=== PATIENT | male | born 1985 | race Caucasian/White ===

== ENCOUNTER 2017-03-17 15:59 | Emergency (ER) | payer BC ==
[2017-03-17 16:10] VITALS: BP 154/79
--- NOTE | 2017-03-17 16:57 | UC ---
Skin Complaint HPI - HPI Summary HPI Summary: For 2 weeks, has been getting raised, itchy, round red bumps on L upper arm near elbow at triceps area; spots are coming in ones and twos, very itchy, then resolve in a few days. Has had at least 6 or 7 of them. Lives in a communal house, no one else has spots. Also shares a bed with someone who is symptom- free. No new fevers, weight loss, or other problems. Has tried benadryl without relief. - History of Current Complaint Hx Obtained From: Patient Onset/Duration: Gradual Onset, Lasting Weeks Timing: Constant Onset Severity: Mild Current Severity: Mild Location: Discrete Character: Pruritus, Redness, Raised Aggravating Factor(s): Nothing Alleviating Factor(s): Nothing Associated Signs & Symptoms: Positive: Rash <Aisha Jade - Last Filed: 03/17/17 16:53> <Priscila Estrada - Last Filed: 03/17/17 19:30> - History of Current Complaint Chief Complaint: UCRash Time Seen by Provider: 03/17/17 16:23 Stated Complaint: RASH - Allergy/Home Medications Allergies/Adverse Reactions: Allergies Allergy/AdvReac Type Severity Reaction Status Date / Time Shellfish Allergy Allergy Hives Verified 03/17/17 16:10 Home Medications: Home Medications diPHENhydraMINE PO* [Benadryl PO 25 MG TAB*] 1 tab PO ONCE 03/17/17 [History Confirmed 03/17/17] Review of Systems Constitutional: Negative Skin: Rash Eyes: Negative ENT: Negative Respiratory: Negative Cardiovascular: Negative Gastrointestinal: Negative Genitourinary: Negative Motor: Negative Neurovascular: Negative Musculoskeletal: Negative Neurological: Negative Psychological: Negative Is Patient Immunocompromised?: No All Other Systems Reviewed And Are Negative: Yes <Aisha Jade - Last Filed: 03/17/17 16:53> PMH/Surg Hx/FS Hx/Imm Hx Previously Healthy: Yes - Surgical History Surgical History: Yes Surgery Procedure, Year, and Place: CHOLECYSTECTOMY - Family History Known Family History: Positive: Hypertension - Social History Occupation: Employed Full-time Alcohol Use: Occasionally Substance Use Type: None Smoking Status (MU): Never Smoked Tobacco - Immunization History Most Recent Influenza Vaccination: never Most Recent Tetanus Shot: up to date <Aisha Jade - Last Filed: 03/17/17 16:53> Physical Exam Triage Information Reviewed: Yes Appearance: Well-Appearing, No Pain Distress, Well-Nourished Vital Signs: Initial Vital Signs Temp 97.6 F 03/17/17 16:08 Pulse 75 03/17/17 16:08 Resp 18 03/17/17 16:08 BP 154/79 03/17/17 16:08 Pulse Ox 100 03/17/17 16:08 Vital Signs Reviewed: Yes Eye Exam: Normal Eyes: Positive: Conjunctiva Clear ENT Exam: Normal ENT: Positive: Normal ENT inspection, Hearing grossly normal, Pharynx normal, TMs normal Dental Exam: Normal Neck exam: Normal Respiratory Exam: Normal Respiratory: Positive: Chest non-tender, Lungs clear, Normal breath sounds, No respiratory distress, No accessory muscle use Cardiovascular Exam: Normal Cardiovascular: Positive: RRR, No Murmur Musculoskeletal Exam: Normal Neurological Exam: Normal Neurological: Positive: Alert Psychological Exam: Normal Skin Exam: Other - single 1cm raised papule L triceps area, red & inflamed. No streaking, blisters, or drainage. <Aisha Jade - Last Filed: 03/17/17 16:53> Vital Signs: Initial Vital Signs Temp 97.6 F 03/17/17 16:08 Pulse 75 03/17/17 16:08 Resp 18 03/17/17 16:08 BP 154/79 03/17/17 16:08 Pulse Ox 100 03/17/17 16:08 <Priscila Estrada - Last Filed: 03/17/17 19:30> Course/Dx - Diagnoses Provider Diagnoses: dermatitis <Aisha Jade - Last Filed: 03/17/17 16:53> Discharge <Aisha Jade - Last Filed: 03/17/17 16:53> <Priscila Estrada - Last Filed: 03/17/17 19:30> - Discharge Plan Condition: Stable Disposition: HOME Prescriptions: Clobetasol Propionate 1 applic TOPICAL BID #30 gm Patient Education Materials: Dermatitis (ED) Referrals: Glenn Kevin MD [Primary Care Provider] - Additional Instructions: As we discussed, I do not have a strong impression of what is causing your itchy spots. They do NOT look like infection, infestation, or anything worrisome. However, if you continue to get spots in that area (or elsewhere), please go see your primary care provider. Attestation Statement User Type: Provider - I was available for consult. This patient was seen by the ANTONY. The patient was not presented to, seen by, or examined by me. -[place] <Priscila Estrada - Last Filed: 03/17/17 19:30>
== END 2017-03-17 17:01 | disposition home or self-care (01) ==
LOC: UCEAST 15:59
DX: L30.9 Dermatitis, unspecified (principal)
CPT/HCPCS: 99212; G0463

== ENCOUNTER 2017-03-19 11:35 | Emergency (ER) | payer BC ==
[2017-03-19 11:55] VITALS: BP 142/73
--- NOTE | 2017-03-19 13:57 | UC ---
Back Pain HPI - HPI Summary HPI Summary: Patient presents to the with CC of left neck pain radiating to the left scapula since wakening this morning. Denies numbness, tingling, color or temperature changes to the hand and arm. He has never had this before. States upon wakening he felt he had pinched a nerve and has been unable have full ROM without pain. He has tried IBuprofen x 1 without relief of symptoms. He has not tried head. Denies known trauma or other injury to the area. - History of Current Complaint Hx Obtained From: Patient Onset/Duration: Sudden Onset Timing: Constant Severity Initially: Moderate Severity Currently: Moderate Pain Intensity: 0 Pain Scale Used: 0-10 Numeric Back Pain: Is Discrete @ - left scapula Aggravating Factor(s): Movement Alleviating Factor(s): Rest, Position Associated Signs And Symptoms: Positive: Negative. Negative: Fever, Weakness, Numbness - Risk Factors AAA Risk Factors: Negative TAD Risk Factors: Negative Cauda Equina Risk Factors: Negative Epidural Abscess Risk Factors: Negative <Coty Garcia - Last Filed: 03/19/17 13:53> - HPI Summary HPI Summary: CLARIFICATION TO HPI - PT HAS NOT TRIED HEAT <Jennifer Mirza - Last Filed: 03/19/17 15:16> - History of Current Complaint Chief Complaint: UCBackPain Stated Complaint: BACK PAIN Time Seen by Provider: 03/19/17 12:33 - Allergies/Home Medications Allergies/Adverse Reactions: Allergies Allergy/AdvReac Type Severity Reaction Status Date / Time Shellfish Allergy Allergy Hives Verified 03/17/17 16:10 PMH/Surg Hx/FS Hx/Imm Hx Previously Healthy: Yes - Surgical History Surgical History: Yes Surgery Procedure, Year, and Place: CHOLECYSTECTOMY - Family History Known Family History: Positive: Hypertension - Social History Occupation: Employed Part-time Lives: With Family Alcohol Use: Occasionally Substance Use Type: None Smoking Status (MU): Never Smoked Tobacco - Immunization History Most Recent Influenza Vaccination: never Most Recent Tetanus Shot: up to date <Coty Garcia - Last Filed: 03/19/17 13:53> Review of Systems Constitutional: Negative Respiratory: Negative Cardiovascular: Negative Gastrointestinal: Negative Genitourinary: Negative Motor: Decreased ROM Neurovascular: Negative Musculoskeletal: Arthralgia - left scapular pain Neurological: Negative Is Patient Immunocompromised?: No All Other Systems Reviewed And Are Negative: Yes <Coty Garcia - Last Filed: 03/19/17 13:53> Physical Exam Triage Information Reviewed: Yes Appearance: Well-Appearing, Well-Nourished Vital Signs: Initial Vital Signs Temp 97.5 F 03/19/17 11:51 Pulse 63 03/19/17 11:51 Resp 16 03/19/17 11:51 BP 142/73 03/19/17 11:51 Pulse Ox 100 03/19/17 11:51 Vital Signs Reviewed: Yes Eye Exam: Normal Eyes: Positive: Conjunctiva Clear Neck exam: Normal Neck: Positive: Supple, No Lymphadenopathy Respiratory Exam: Normal Respiratory: Positive: Chest non-tender Cardiovascular Exam: Normal Cardiovascular: Positive: RRR Musculoskeletal: Positive: Strength Intact, ROM Intact - but with pain Neurological Exam: Normal Neurological: Positive: Alert Psychological Exam: Normal Psychological: Positive: Normal Response To Family Skin Exam: Normal <Coty Garcia - Last Filed: 03/19/17 13:53> Vital Signs: Initial Vital Signs Temp 97.5 F 03/19/17 11:51 Pulse 63 03/19/17 11:51 Resp 16 03/19/17 11:51 BP 142/73 03/19/17 11:51 Pulse Ox 100 03/19/17 11:51 <Jennifer Mirza - Last Filed: 03/19/17 15:16> Back Pain Course/Dx - Course Course Of Treatment: Patient is evaluated for acute onset neck and scapular pain since this morning. He has full ROM. Upon flexion of the neck, he notes to pain under the left scapula as a "pulling" sensation." He has full ROM and denies any weakness or ROM limitations. Encouraged ibuprofen and moist heat to the area and he is given flexeril for muscle relief. He is Ok with this plan and understands any return precautions given to him. - Differential Dx/Diagnosis Differential Diagnosis/HQI/PQRI: Strain, Sprain Provider Diagnoses: Cervical radiculopathy <Coty Garcia - Last Filed: 03/19/17 13:53> Discharge <Coty Garcia - Last Filed: 03/19/17 13:53> <Jennifer Mirza - Last Filed: 03/19/17 15:16> - Discharge Plan Condition: Stable Disposition: HOME Prescriptions: Cyclobenzaprine TAB* [Flexeril TAB*] 10 mg PO TID #15 tab MDD 3 Patient Education Materials: Cervical Radiculopathy (ED), Acute Neck Pain (ED) Referrals: Glenn Kevin MD [Primary Care Provider] - Additional Instructions: Flexeril: This medication is a muscle relaxant and can help relieve muscle spasms, muscle strain, or pain sensations. Flexeril can cause side effects that may impair your thinking or reactions. Be careful if you drive or do anything that requires you to be awake and alert. Avoid drinking alcohol, which can increase some of the side effects of Flexeril. Ibuprofen 600mg three times daily with meals for discomfort. Return to ED if symptoms worsen or fail to improve, notice worsening swelling, warmth or redness around the joint, develop fever, or pain is uncontrolled with OTC medications. Moist heat to the area for comfort. Warm showers or baths may improve symptoms. It is important to remain mobile as tolerated to prevent stiffening of the joints and delay healing. Follow up with your PCP. If symptoms remain for > 6 weeks, please seek special medical attention from an orthopedic physician.
== END 2017-03-19 12:57 | disposition home or self-care (01) ==
LOC: UCEAST 11:35
DX: M54.12 Radiculopathy, cervical region (principal); Z91.013 Allergy to seafood
CPT/HCPCS: 99212; G0463

== ENCOUNTER 2017-11-30 07:16 | Emergency (ER) | payer BC ==
--- OUTSIDE RECORDS SUMMARY | 2017-11-30 07:22 | XMS REPORT ---
:1985 External Reference #:[id number] Author Organization [employer] Address [address] [place] [address] [place] [address] Phone [phone] Care Team Providers Name Role Phone Glenn Kevin MD Primary Care Physician Unavailable Payers Type Date Identification Numbers Payment Provider Subscriber Commercial Policy Number: [id number] [employer] Honorio Young PayID: [id number] [address] [address] [place] [address] Problems Date Description Provider Status Onset: 11/11/2017 Lesion of ulnar nerve Milton Quiroz MD Active Onset: 11/11/2017 Sprain of wrist and/or hand Milton Quiroz MD Active Social History Type Date Description Comments Smoking Patient has never smoked Recreational Drug Use Regularly uses Marijuana Allergies, Adverse Reactions, Alerts Date Description Reaction Status Severity Comments 07/01/2017 Shellfish-derived Products active hives Medications Medication Date Status Form Strength Qnty SIG Indications Ordering Provider Meclizine HCL Active Tablets 25mg as needed Unknown [address] 20mg 1 by Unknown 000 mouth every day Truvada 0 Active Tablets 200-300mg 1 by Unknown 000 mouth every day Vital Signs Date Vital Result Comment 11/11/2017 Height 74 inches 6'2" Weight 255.25 lb Heart Rate 74 /min BP Systolic 126 mmHg BP Diastolic 80 mmHg Respiratory Rate 16 /min Body Temperature 97.6 F Pain Level 6 BMI (Body Mass Index) 32.8 kg/m2 09/23/2017 Heart Rate 78 /min BP Systolic Sitting 132 mmHg BP Diastolic Sitting 84 mmHg Respiratory Rate 16 /min Body Temperature 97.8 F 07/01/2017 Height 73 inches 6'1" Weight 252.00 lb Heart Rate 76 /min BP Systolic 140 mmHg BP Diastolic 90 mmHg Respiratory Rate 18 /min Body Temperature 98.1 F BMI (Body Mass Index) 33.2 kg/m2 Results Description No Information Procedures Date CPT Code Description Status 09/23/2017 56225 Anoscopy Completed 07/01/2017 60283 Anoscopy Completed Encounters Type Date Location Provider CPT E/M Dx Office Visit 09/23/2017 [facility], 03164 L29.0 10:30a Kong RANDALL Office Visit 07/01/2017 [facility], [address]604 L29.0 10:00a Kong RANDALL Plan of Care 11/11/2017 - Milton Quiroz, [id number] Other specified sprain of right wrist, initial encounterNew Therapy:Physical TherapyFollow up:Follow up: after MRI and EMGG56.21 Lesion of ulnar nerve, right upper limbNew Therapy:Physical Therapy
[2017-11-30 07:29] VITALS: BP 161/85
--- NOTE | 2017-11-30 08:35 | UC ---
Lower Extremity/Ankle HPI - HPI Summary HPI Summary: States yesterday night he jumped off a stage that was about 4 feet above the ground and landed on both feet. He was wearing 5 inch heels at the time of the jump. He continued to be able to walk and dance and it was until later that evening he noticed some pain on right mid foot and around left pinky toe area. This morning he states the pain was much more severe and he drove himself to but can barely walk. Denies tingling, numbness. Pain worsens with ambulation and he has to hobble in order to walk. Denies heel or ankle pain. Denies PMH, on PREP currently. - History of Current Complaint Stated Complaint: FOOT INJURY Time Seen by Provider: 11/30/17 07:21 Hx Obtained From: Patient Onset/Duration: Sudden Onset, Lasting Hours Severity Initially: Mild Severity Currently: Severe Pain Intensity: 8 Aggravating Factor(s): Standing, Ambulation Alleviating Factor(s): Rest, Elevation Able to Bear Weight: Yes - Risk Factors Gout Risk Factors: Negative DVT Risk Factors: Negative Septic Arthritis Risk Factor: Negative - Allergies/Home Medications Allergies/Adverse Reactions: Allergies Allergy/AdvReac Type Severity Reaction Status Date / Time shellfish derived Allergy Hives Verified 11/30/17 07:23 Home Medications: Home Medications Emtricitabine/Tenofovir (Tdf) [Truvada 200 mg-300 mg Tablet] 1 tab PO DAILY 06/19 [History Confirmed 11/30/17] PMH/Surg Hx/FS Hx/Imm Hx Previously Healthy: Yes - Surgical History Surgical History: Yes Surgery Procedure, Year, and Place: CHOLECYSTECTOMY- 2004 - Family History Known Family History: Positive: Hypertension - Social History Alcohol Use: Occasionally Substance Use Type: None Smoking Status (MU): Never Smoked Tobacco - Immunization History Most Recent Influenza Vaccination: never Most Recent Tetanus Shot: up to date Review of Systems Constitutional: Negative Motor: Decreased ROM Musculoskeletal: Arthralgia, Myalgia All Other Systems Reviewed And Are Negative: Yes Physical Exam Triage Information Reviewed: Yes Appearance: Well-Appearing, Pain Distress, Obese Vital Signs: Initial Vital Signs Temp 98.1 F 11/30/17 07:25 Pulse 84 11/30/17 07:25 Resp 20 11/30/17 07:25 BP 161/85 11/30/17 07:25 Pulse Ox 100 11/30/17 07:25 Vital Signs Reviewed: Yes Eye Exam: Normal Eyes: Positive: Conjunctiva Clear ENT: Positive: Hearing grossly normal Neck: Positive: Supple Respiratory: Positive: Chest non-tender, Lungs clear, Normal breath sounds Cardiovascular: Positive: RRR, No Murmur, Pulses Normal, Brisk Capillary Refill Musculoskeletal: Positive: Other: - right foot: tenderness upon palpation on mid dorsum of foot, around navicular area and proximal metatarsal heads. No edema. ROM toes limited by pain. No edema, anterior and posterior pedal pulses present, no bruises or deformity. Left Foot: tenderness along proximal and distal phalanx 5th toe. No deformity or edema, no bruising, pedal pulses present , FROM toes and ankle. Lower Extremity Course/Dx - Course Course Of Treatment: Patient had xrays which were unremarkable for fracture, start ibuprofen as prescribed, crutches were dispensed and boot was fitted on right leg as it is the one which is the most painful and which is limiting ambulation. Will refer to PT and orthopedic f/u. f/u with PCP for monitoring of blood pressure - Differential Dx/Diagnosis Provider Diagnoses: Foot sprain. Elevated BP without diagnosis of HTN Discharge - Sign-Out/Discharge Documenting (check all that apply): Discharge/Admit/Transfer - Discharge Plan Condition: Good Disposition: HOME Prescriptions: Ibuprofen TAB* [Motrin TAB* 600 MG] 600 mg PO Q6H PRN #30 tab PRN Reason: Pain Patient Education Materials: Ibuprofen (By mouth), Foot Sprain (ED), Hypertension (ED) Referrals: Glenn Kevin MD [Primary Care Provider] - - Billing Disposition and Condition Condition: GOOD Disposition: Home
[2017-11-30] MEDS ORDERED: Ibuprofen TAB* 600 MG PO ONE (08:37)
--- NOTE | 2017-11-30 08:38 | RAD ---
Indication: Left fifth metatarsal pain, right metatarsal pain. 3 views of the right foot are reviewed. No fracture or dislocation is noted. No other bone or joint abnormalities identified. 3 views of left foot demonstrates no fracture or dislocation. No other bone or joint abnormality is identified. IMPRESSION: Unremarkable bilateral feet.
== END 2017-11-30 09:00 | disposition home or self-care (01) ==
LOC: UCEAST 07:16
DX: S93.601A Unspecified sprain of right foot, initial encounter (principal); W22.09XA Striking against other stationary object, initial encounter; Y93.9 Activity, unspecified; Y99.9 Unspecified external cause status; R03.0 Elevated blood-pressure reading, without diagnosis of hypertension
CPT/HCPCS: 99213; A9270-GY; G0463

== ENCOUNTER 2019-03-22 08:08 | Emergency (ER) | payer BC ==
--- OUTSIDE RECORDS SUMMARY | 2019-03-22 08:13 | XMS REPORT | Continuity of Care Document ---
:1985 Author Organization [facility] Address [address] [place] [address] Phone Care Team Providers Name Role Phone Jessica Chisholm NP Unavailable Unavailable Allergies, Adverse Reactions, Alerts Substance Reaction Status shellfish derived Hives/Skin Rash Active Medications Medication Instructions Dosage Effective Dates Status Comments (start - stop) Truvada 200 mg-300 take 1 tablet by 1.00 tablet - Active mg tablet oral route every day OMEPRAZOLE Not Available - Active (unknown strength) Problems Condition Effective Dates (start - Clinical Status Comments stop) 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 Encntr screen for infections w sexl mode of transmiss Encounter for screening for human immunodeficiency virus Proteinuria, unspecified Encntr screen for infections w sexl mode of transmiss Human immunodeficiency virus [HIV] - counseling Encounter for screening for human - immunodeficiency virus 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 Encounter for screening for human immunodeficiency virus Encntr screen for infections w sexl mode of transmiss Human immunodeficiency virus [HIV] counseling Human immunodeficiency virus [HIV] - counseling Other retirement (current) drug therapy Encntr screen for infections w sexl mode of transmiss Contact w and exposure to infect w a sexl mode of transmiss Encounter for screening for human - immunodeficiency virus Human immunodeficiency virus [HIV] - counseling Other retirement (current) drug therapy Encounter for screening for human - immunodeficiency virus Encounter for preprocedural laboratory examination Body mass index (BMI) 32.0-32.9, adult Encntr screen for infections w sexl mode of transmiss High risk bisexual behavior Encounter for oth general cnsl and - advice on contraception Human immunodeficiency virus [HIV] - counseling Encntr screen for infections w sexl mode of transmiss Encounter for screening for human - immunodeficiency virus High risk sexual behavior - Active Procedures Procedure Date No information Results Test Name Date and Time Measure Units Reference Range Abnormal Flag Status Comments No information Advance Directives Directive Yes / No Effective Date File Name No information Encounters Encounter Practice Location Reason(s) Diagnoses Date Provider Providers Description For Visit Copied on Encounter [facility] [place] 2 Jessica. Southern [address] [place], [address], [address] [place], St, [place], [address], [id number], [place]. 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 Provider: [facility] therapyEncntr 9 [address] screen for [place], [address], [address], W [place] mode of [place], St, St, [place], trans[place]Encounter [place], [place] [address], [place], [address]. [id number], human [place]. [place] immunodeficiency tel:[phone] virus [phone] [facility] Proteinuria, David-0 White Referring [facility] [place] unspecifiedEncntr Jessica. Provider: [facility] screen for 9 [address] infections w sexl [place], [address], [address], W [place] transmissHuman [place], St, St, [place], [place], virus [[place]] [address], [place], [address]. [id number], counselingEncounter [place]. 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 Provider: [facility] therapyEncounter 9 [address] for screening for [place], [address] [place], [address], W [place] immunodeficiency [place], St, St, [place], virusEncntr screen [place] [address], [place], [address]. [id number], sexl mode of [place]. [place] transmissHuman tel:[phone] immunodeficiency [phone] virus [HIV] counseling [facility] Human Oct-0 Jesus Referring [facility] [place] immunodeficiency 4201 Agnes. Provider: Gil virus [HIV] 8 [address] [place] F[address] counselingOther [place] J, [place], [address] ferry terminal supervisor (current) St, [address] [place] drug therapyEncntr [place], [place], St, [place], screen [place] [address], [place], [address]. [id number], mode of [place]. tel:+[phone] [place] transmissContact w tel:[phone] tel:[phone] and exposure to [phone] infect w a sexl mode of transmissEncounter for screening for human immunodeficiency virus [facility] Human David-1 Hemmer Referring [facility] [place] immunodeficiency 2-201 [facility] Provider: Gil virus [HIV] 8 Sueane. Sueane Finger counselingOther [address] [facility], 620 ferry terminal supervisor (current) [place], W [place] drug [address], [address], [place], therapyEncounter [place], [place], [id number], [place] [address]. [place], [address]. [place] immunodeficiency tel:[phone] tel:[phone] tel:[phone] virus [phone] [facility] Encounter for Mar-0 White Ref[facility] [place] preprocedural Jessica. Provider: [facility] laboratory 8 [address] examinationBody [place], [address] [place], [address] mass index (BMI) [address], W [place] 32.0-32.9, [place], St, St, [place], adultEncntr screen [place] [address], [place], [address]. [id number], sexl mode of [place]. [place] transmissHigh risk tel:[phone] bisexual behavior [phone] [facility] Encounter for oth Mika Referring [facility] [place] general cnsl and [place] Provider: Gil stone on 8 . [address] [place] F[address] contraceptionHuman [place] Abhishekino F, [place], [address] [place] virus [HIV] [place], [place] [address], St, [place], counselingEncntr [place] [address], [place], [address]. [id number], infections w sexl [place]. tel:+[phone] [place] mode of tel: [phone] tel:[phone] transmissEncounter [phone] [id number] for screening for human immunodeficiency virus Family History Family Member Diagnosis Age At Onset No information Immunizations Vaccine Date Status Comments No information Payers Payer name Insurance type Covered alliance party ID Authorization(s) [facility] [id number] Social History Type Description Quantity Date Captured Comments Alcohol Use Details Unknown Caffeine Use Details Unknown Tobacco Use Status Unknown Smoking Status Never smoker Sex Male Vital Signs Date / Height Weight BMI Pulse Blood Temperature Respiratory Body Head BMI Pulse Inhaled Time: Rate Pressure Rate Surface Circumference percentile [place] Area No information Chief Complaint And Reason For Visit No information Reason For Referral Reason For Referral No information Plan Of Treatment Date Type Action Status No information History Of Present Illness Encounter Date Complaint History Of Present Illness No information Functional Status Date Functional Assessment No information Medications Administered Medication Instructions Dosage Effective Dates (start - stop) Status Comments No information Instructions Date Instruction Additional Information No information Assessments Type Assessment Date No information Goals Health Concern Goal Type Priority Status Date No information Medical Equipment Description Device [place] Device Identifier Effective Dates (start - stop ) Status No information Mental Status Date Cognitive Assessment No information Health Concerns Observation Date No information Concern Status Date No information
--- OUTSIDE RECORDS SUMMARY | 2019-03-22 08:13 | XMS REPORT | Continuity of Care Document ---
:1985 Author Organization [facility] Address [address] [place] [address] Phone Care Team Providers Name Role Phone Jessica Chisholm NP Unavailable Unavailable Allergies, Adverse Reactions, Alerts Substance Reaction Status shellfish derived Hives/Skin Rash Active Medications Medication Instructions Dosage Effective Dates Status Comments (start - stop) Truvada 200 take 1 tablet by 1.00 tablet - Active mg-300 mg tablet oral route every day OMEPRAZOLE Not Available - Active (unknown strength) Truvada 200 take 1 tablet by 1.00 tablet - No Longer mg-300 mg tablet oral route every Active day Problems Condition Effective Dates (start - Clinical Status Comments stop) Proteinuria, unspecified Encntr screen for infections w sexl mode of transmiss Human immunodeficiency virus [HIV] - counseling Encounter for screening for human - immunodeficiency virus Other [facility] (current) drug therapy Other [facility] (current) drug therapy Encounter for screening for human immunodeficiency virus Encntr screen for infections w sexl mode of transmiss Human immunodeficiency virus [HIV] counseling Human immunodeficiency virus [HIV] - counseling Other [facility] (current) drug therapy Encntr screen for infections w sexl mode of transmiss Contact w and exposure to infect w a sexl mode of transmiss Encounter for screening for human - immunodeficiency virus Human immunodeficiency virus [HIV] - counseling 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 Southern 9 [address] [place], [address], W [place], St, [place], [address], [id number], [place]. [place] tel:[phone] [facility] , White Referring [facility] [place] unspecifiedEncntr Jessica. Provider: Gil screen for 9 [address] infections w sexl [place], [address], [address], W [place] transmissHuman [place], St, St, [place], immunodeficiency [place], [place], virus [[place]] [address], [place], [address]. [id number], counselingEncounter . for screening for tel:[phone] human [phone] immunodeficiency virusOther [facility] (current) drug therapy [facility] Other [facility] White Referring [facility] [place] (current) drug Jessica. Provider: Gil therapyEncounter 9 [address] for screening for [place], [address] [place], [address], W [place] W [place] immunodeficiency [place], St, St, [place], virusEncntr screen [place] [address], [place], [address]. [id number], sexl mode [facility] [place]. [facility] tel:[phone] immunodeficiency [phone] virus [HIV] counseling [facility] Human Mar- Jesus Referring [facility] [place] immunodeficiency Agnes. Provider: Gil virus [HIV] 8 [address] [address] counselingOther [place] Jesus Micheala Rosaline, [address] (current[address], [address] [place] drug therapyEncntr [place], [place] St, St, [place], screen for [place] [address], [place], [address]. [id number], mode of [place]. tel:[phone] [place] transmissContact w tel:[phone] tel:[phone] and exposure to [phone] infect w a sexl mode of transmissEncounter for screening for human immunodeficiency virus [facility] Human David-1 [place]- Referring Parenthood [place] immunodeficiency 2 Hemmer Provider: Gil virus [HIV] 8 Sueane. 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 [place], [address]. [place] immunodeficiency tel:[phone] tel:[phone] tel:[phone] virus [phone] [facility] Encounter for Mar-0 White Referring [facility] [place] preprocedural Jessica. Provider: Gil laboratory 8 [address] examinationBody [place], [address], [address] mass index (BMI) St, W [place] W [place] 32.0-32.9, [place], St, St, [place], adultEncntr screen [place], [place] [address], [place], [address]. [id number], sexl mode of [place]. [place] transmissHigh risk tel:[phone] bisexual behavior [phone] [facility] Encounter for oth Mika Referring Parenthood [place] general cnsl and [place] Provider: Gil advice on 8 . [address] [place] F[address] contraceptionHuman [place]aline Gastel[place], [address] [place] virus [HIV] [place], [place] St, St, [place], counselingEncntr [place], [place] [address], [place], [address]. [id number], infections w sexl [place]. tel:[phone] [place] mode of tel:[phone] tel:[phone] transmissEncounter [phone] [id number] for screening for human immunodeficiency virus Family History Family Member Diagnosis Age At Onset No information Immunizations Vaccine Date Status Comments No information Payers Payer name Insurance type Covered constitution party ID Authorization(s) [facility] [id number] Social History Type Description Quantity Date Captured [...] Plan Of Treatment Date Type Action Status Appointment POLY BROWN BOOKED History Of Present Illness Encounter Date Complaint History Of Present Illness No information Functional Status Date Functional Assessment No information Medications Administered Medication Instructions Dosage Effective Dates (start - stop) Status Comments No information Instructions Date Instruction Additional Information No information Assessments Type Assessment Date No information Goals Health Concern Goal Type Priority Status Date No information Medical Equipment Description Device [place] Device Identifier Effective Dates (start - stop ) Status No information Mental Status Date Cognitive Assessment No information Health Concerns Observation Date No information Concern Status Date No information
--- OUTSIDE RECORDS SUMMARY | 2019-03-22 08:13 | XMS REPORT | Continuity of Care Document ---
:1985 Author Organization [facility] Address [address] [place] [address] Phone Care Team Providers Name Role Phone Kerry Ordaz Unavailable Unavailable Allergies, Adverse Reactions, Alerts Substance Reaction Status shellfish derived Hives/Skin Rash Active Medications Medication Instructions Dosage Effective Dates Status Comments (start - stop) azithromycin 500 mg 2 tabs po x 1 for - Active tablet infection ceftriaxone 250 mg 250mg IM mixed with - Active solution for 1% lidocaine injection Truvada 200 mg-300 take 1 tablet by 1.00 tablet - Active mg tablet oral route every day OMEPRAZOLE (unknown Not Available - Active strength) Problems Condition Effective Dates (start - Clinical Status Comments stop) Encntr screen for infections w sexl mode of transmiss Contact w and exposure to infect w a sexl mode of transmiss 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 Encntr screen for infections w sexl mode of transmiss Encounter for screening for human immunodeficiency virus Proteinuria, unspecified Encntr screen for infections w sexl mode of transmiss Human immunodeficiency virus [HIV] - counseling Encounter for screening for human - immunodeficiency virus Other prison (current) drug therapy 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 Encounter for screening for human immunodeficiency virus Encntr screen for infections w sexl mode of transmiss Human immunodeficiency virus [HIV] counseling Human immunodeficiency virus [HIV] - counseling Other prison (current) drug therapy Encntr screen for infections w sexl mode of transmiss Contact w and exposure to infect w a sexl mode of transmiss Encounter for screening for human - immunodeficiency virus Human immunodeficiency virus [HIV] - counseling 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 Encounter for screening for human - immunodeficiency virus Encounter for preprocedural laboratory examination Body mass index (BMI) 32.0-32.9, adult Encntr screen for infections w sexl mode of transmiss High risk bisexual behavior Encounter for ot general cnsl and - advice on contraception Human immunodeficiency virus [HIV] - counseling Encntr screen for infections w sexl mode of transmiss Encounter for screening for human - immunodeficiency virus High risk sexual behavior - Active Procedures Procedure Date N.GONORRHOEAE, DNA, AMP PROB CHYLMD DNA, AMP PROBE TRICHOMONAS VAGIN, DIR PROBE N.GONORRHOEAE, DNA, PHARYNGEAL CHYLMD, DNA, PHARYNGEAL N.GONORRHOEAE, DNA, RECTAL CHYLMD, DNA, RECTAL OFFICE/OUTPATIENT VISIT, EST INJECTION DEPO/CEFTRIAXONE OTHER Medical Services 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 STI CEFTRIAXONE INJECTION AZITHROMYCIN 500 MG #2 Results Test Name Date and Time Measure Units Reference Range Abnormal Flag Status Comments No information NOTE: This patient has pending results not included in this document. Advance Directives Directive Yes / No Effective Date File Name No information Encounters Encounter Practice Location Reason(s) Diagnoses Date Provider Providers Description For Visit Copied on Encounter OFFICE/OUTPA [facility] Encntr screen for [place] Referring TIENT VISIT, [facility] [place] infections w sexl 3-201 Kerry. Provider: EST [facility] mode of 9 [address] transmissContact w [place], [address] W [place] W [place] infect w a sexl [place], St, St, [place], mode [place] transmiss [place], [place], [address]. [place], [address]. 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 Provider: [facility] therapyEncntr 9 [address] screen for [place], [address], [address], W [place] W [place] mode of [place], St, St, [place], transmissEncounter [place], [place], [place] [address], [place], [address]. [id number], human [place]. [place] immunodeficiency tel:[phone] virus [phone] [facility] Proteinuria, David-0 White Referring [facility] [place] unspecifiedEncntr Jessica. Provider: [facility] screen for 9 [address] infections w sexl [place] White, [address], [address], W [place] W [place] transmissHuman [place], St, St, [place], immunodeficiency [place], [place], [place] [[place]] [address], [place], [address]. [id number], counselingEncounter . 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 Provider: [facility] therapyEncounter 9 [address] for screening for [place] White, [address] [place], W [place] W [place] immunodeficiency [place], St, St, [place], virusEncntr screen [place], [place] [address], [place], [address]. [id number], sexl mode [facility] [place]. [facility]:[phone] immunodeficiency [phone] virus [HIV] counseling [facility] Human Oct-0 Jesus Referring [facility] [place] immunodeficiency Agnes. Provider: [facility] virus [HIV] 8 [address] counselingOther [place] Jesus J, [place], [address] prison (current) [address], [address] [place] drug therapyEncntr [place], [place] St, St, [place], screen for [place] [address], [place], [address]. [id number], mode of [place]. tel:+60 [place] transmissContact w tel: [phone] tel:72 and exposure to [phone] infect w a sexl mode of transmissEncounter for screening for human immunodeficiency virus [facility] Human David-1 Hemmer Referring [facility] [place] immunodeficiency 2 Goodre Provider: Gil virus [HIV] 8 Sueane. Sueane Finger counselingOther [address] [place], 620 terminal operations supervisor (current) [place], W [place] drug [address], [address], [place], therapyEncounter [place], [place] [address], [place], [place], [place], [id number], [place] [address]. [place], [address]. [place] immunodeficiency tel:60 tel:60 tel:[phone] virus [phone] [facility] Encounter for Mar-0 White Referring [facility] [place] preprocedural Jessica. Provider: [facility] laboratory 8 [address] examinationBody [place] White, [address], [address] ([address], W [place] W [place] 32.0-32.9, [place], , St, [place], adultEncntr screen [place], [place] [address], [place], [address]. [id number], sexl mode of [place]. [place] transmissHigh risk tel:[phone] bisexual behavior [phone] [facility] Encounter for oth Mika Referring [facility] [place] general cnsl and [place] Provider: [facility] advice on 8 . [address] [place] Finger contraceptionHuman [place] Guggino F, [place], [address], [address] [place] virus [HIV] [place], [place] St, St, [place], counselingEncntr [place], [place] [address], [place], [address]. [id number], infections w sexl [place]. tel:+60 [place] mode of tel:[phone] tel:+[phone] transmissEncounter [phone] [id number] for screening for human immunodeficiency virus Family History Family Member Diagnosis Age At Onset No information Immunizations Vaccine Date Status Comments No information Payers Payer name Insurance type Covered green party ID Authorization(s) [facility] [id number] Social History Type Description Quantity Date Captured Comments Alcohol Use Details Unknown Caffeine Use Details Unknown Tobacco Use Status Current non-smoker Smoking Status Never smoker Non-Smoking Tobacco : No Details Available : No Details Available 2018 Use Details Sex Male Vital Signs Date / Height [...] Information No information Assessments Type Assessment Date assessment Encntr screen for infections w sexl mode of transmiss assessment Contact w and exposure to infect w a sexl mode of transmiss Goals Health Concern Goal Type Priority Status Date No information Medical Equipment Description Device [place] Device Identifier Effective Dates (start - stop ) Status No information Mental Status Date Cognitive Assessment Normal Orientation Health Concerns Observation Date No information Concern Status Date No information
--- OUTSIDE RECORDS SUMMARY | 2019-03-22 08:13 | XMS REPORT | Continuity of Care Document ---
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 Encntr screen for infections w sexl mode of transmiss Encounter for screening for human immunodeficiency virus Proteinuria, unspecified Encntr screen for infections w sexl mode of transmiss Human immunodeficiency virus [HIV] - counseling Encounter for screening for human - immunodeficiency virus Other alf (current) drug therapy Other alf (current) drug therapy Encounter for screening for human immunodeficiency virus Encntr screen for infections w sexl mode of transmiss Human immunodeficiency virus [HIV] counseling Human immunodeficiency virus [HIV] - counseling Other alf (current) drug therapy Encntr screen for infections w sexl mode of transmiss Contact w and exposure to infect w a sexl mode of transmiss Encounter for screening for human - immunodeficiency virus Human immunodeficiency virus [HIV] - counseling Other alf (current) drug therapy Encounter for screening for [...] sexual behavior - Active Procedures Procedure Date OFFICE/OUTPATIENT VISIT, EST Syphilis HTLV/HIV Gen 4 TEST ASSAY OF CREATININE N.GONORRHOEAE, DNA, AMP PROB CHYLMD DNA, AMP PROBE N.GONORRHOEAE, DNA, PHARYNGEAL CHYLMD, DNA, PHARYNGEAL N.GONORRHOEAE, DNA, RECTAL CHYLMD, DNA, RECTAL ROUTINE VENIPUNCTURE Height/Weight OTHER Medical Services 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 STI Results Test Name Date and Time Measure Units Reference Range Abnormal Flag Status Comments No information Advance Directives Directive Yes / No Effective Date File Name No information Encounters Encounter Practice Location Reason(s) Diagnoses Date Provider Providers Description For Visit Copied on Encounter OFFICE/OUTPA [facility] PrEP Other alf Sep-0 White Referring TIENT VISIT, [facility] [place] Revisit (current) drug Jessica. Provider: ANAMIKA Cordero (chief therapyEncntr [address] complaint) screen for [place], [address], [address], [place] mode of [place], St, St, [place], transmissEncounter [place], [place], [place], [place] [address], [place], [address]. [id number], human [place]. [place] immunodeficiency tel:[phone] virus [phone] [facility] [place] Jessica. Southern [address] [place], [address], [place], St, [place], [address], [id number], [place]. [place] tel:+ [phone] [facility] Proteinuria, David-0 White Referring [facility] [place] unspecifiedEncntr Jessica. Provider: Gil screen for 9 [address] infections w sexl [place], [address], [address], [place] transmissHuman [place], St, St, [place], [place], [place], virus [HIV] [address], [place], [address]. [id number], counselingEncounter [place]. [place] for screening for tel:+ human [phone] immunodeficiency virusOther alf (current) drug therapy [facility] Other superintendent terminal White Referring [facility] [place] (current) drug Jessica. Provider: [facility] therapyEncounter 9 [address] for screening for [place], [address] [place], [address], [place] immunodeficiency [place], St, St, [place], virusEncntr screen [place] [address], [place], [address]. [id number], sexl mode of [place]. [facility]:+ [phone] virus [HIV] counseling [facility] Human Oct-0 Jesus Referring [facility] [place] immunodeficiency 4 Agnes. Provider: Gil virus [HIV] 8 [address] counselingOther [place] J, [place], [address] superintendent terminal (current) St, [address] [place] drug therapyEncntr [place], [place] St, St, [place], screen for [place], [place] [address], [place], [address]. [id number], mode of [place]. tel:+[phone] [place] transmissContact w tel:+ [phone] tel:+ and exposure to [phone] infect w a sexl mode of transmissEncounter for screening for human immunodeficiency virus [facility] Human David- Hemmer Referring [facility] [place] immunodeficiency 2-201 Goodre Provider: Gil virus [HIV] 8 Sueane. Sueane Finger counselingOther [address] [place], 620 alf (current) [place], W [place] [address], [address], [place], therapyEncounter [place], [place] [address], [place], [place], [place], [id number], [place] [address]. [place], [address]. [place] immunodeficiency tel: tel: tel:+[phone] virus [phone] [facility] Encounter for Mar-0 White Referring [facility] [place] preprocedural Jessica. Provider: [facility] laboratory [address] examinationBody [place], [address], [address] mass index (BMI) St, [place] 32.0-32.9, [place], St, , [place], adultEncntr screen [place], [place] [address], [place], [address]. [id number], sexl mode of [place]. [place] transmissHigh risk tel: bisexual behavior [phone] [facility] Encounter for oth Gugiuliaino Referring [facility] [place] general cnsl and [place] Provider: [facility] advice on 8 . [address] [place] [address] contraceptionHuman [place] Gugiuliaino F, [facility], [address], [address] [place] virus [HIV] [place], [address] [place] [address], St, [place], counselingEncntr [place], [place] [address], [place], [address]. [id number], infections w sexl [place]. tel:+ [place] mode of tel: [phone] tel:+[phone] transmissEncounter [phone] for screening for human immunodeficiency virus Family History Family Member Diagnosis Age At Onset No information Immunizations Vaccine Date Status Comments No information Payers Payer name Insurance type Covered green party ID Authorization(s) [place] [facility] [id number] Social History Type Description Quantity Date Captured Comments Alcohol Use Details Unknown Caffeine Use Details Unknown Tobacco Use Status Unknown Smoking Status Never smoker Sex Male Vital Signs Date / Height Weight BMI Pulse Blood Temperature Respiratory Body Head BMI Pulse Inhaled Time: Rate Pressure Rate Surface Circumference percentile Ox Ox Area . lbs 4:13 PM Chief Complaint And Reason For Visit Most recent encounter only, dated '02/03/2019 16:10'. PrEP Revisit ( chief complaint). Description: Context: - Patient's last negative HIV test was 11/02/2018. Pertinent negatives include fatigue, fever, night sweats, headache, dysphagia, mouth sores, sore throat, rash, bone/joint symptoms, myalgia, lymphadenopathy, diarrhea and dysuria. Reason For Referral Reason For Referral No information Plan Of Treatment Date Type Action Status No information History Of Present Illness Encounter Date Complaint History Of Present Illness PrEP Revisit Context: - Patient's last negative HIV test was 11/02/2018. Pertinent negatives include fatigue, fever, night sweats, headache, dysphagia, mouth sores, sore throat, rash, bone/joint symptoms, myalgia, lymphadenopathy, diarrhea and dysuria. 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
--- OUTSIDE RECORDS SUMMARY | 2019-03-22 08:13 | XMS REPORT | Continuity of Care Document ---
:1985 Author Organization [facility] Address [address] [place] [address] Phone Care Team Providers Name Role Phone Beatris Farias NP Unavailable Unavailable Allergies, Adverse Reactions, Alerts Substance Reaction Status shellfish derived Hives/Skin Rash Active Medications Medication Instructions Dosage Effective Dates Status Comments (start - stop) Truvada 200 mg-300 take 1 tablet by 1.00 tablet - Active mg tablet oral route every day OMEPRAZOLE Not Available - Active (unknown strength) Problems Condition Effective Dates (start - Clinical Status Comments stop) Other residential (current) drug therapy Encntr screen for infections w sexl mode of transmiss Encounter for screening for human immunodeficiency virus Proteinuria, unspecified Encntr screen for infections w sexl mode of transmiss Human immunodeficiency virus [HIV] - counseling Encounter for screening for human - immunodeficiency virus Other residential (current) drug therapy 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 Encounter for screening for human immunodeficiency virus Encntr screen for infections w sexl mode of transmiss Human immunodeficiency virus [HIV] counseling Human immunodeficiency virus [HIV] - counseling 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 [facility] [address] [place], [address], [address] [place], St, [place], [place], [address]. [id number], tel:[phone] [place] [phone] tel:[phone] [facility] Other residential Sep-0 White Referring [facility] [place] (current) drug Jessica. Provider: [facility] therapyEncnt 9 [address] screen for [place], [address], [address], [address] [place] mode of [place], , , [place], transmissEncounter [place], [place] [address], [place], [address]. [id number], human [place]. [place] immunodeficiency tel:[phone] virus [phone] [facility] Proteinuria, David-0 White Referring [facility] [place] unspecifiedEncntr Jessica. Provider: [facility] screen for 9 [address] infections w sexl [place], [address], [address], [address] [place] transmissHuman [place], St, St, [place], immunodeficiency [place], [place], virus [HIV] [address], [place], [address]. [id number], counselingEncounter [place]. 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 Provider: [facility] therapyEncounter [address] for screening for [place], [address], [address], [address] [place] immunodeficiency [place], St, St, [place], virusEncntr screen [place] [address], [place], [address]. [id number], sexl mode of [place]. [facility] tel:[phone] immunodeficiency [phone] virus [HIV] counseling [facility] Human Oct-0 Jesus Referring [facility] [place] immunodeficiency 4201 Agnes. Provider: Gil virus [HIV] 8 [address] counselingOther [place] Jesus J, [place], [address] residential (current) [address], [address] [place] drug therapyEncntr [place], [place] [address], St, [place], screen [place] [address], [place], [address]. [id number], mode of [place]. tel:+[phone] [place] transmissContact w tel:[phone] tel:[phone] and exposure to [phone] infect w a sexl mode of transmissEncounter for screening for human immunodeficiency virus [facility] Human David-1 Hemmer Referring [facility] [place] immunodeficiency 2- [facility] Provider: Gil virus [HIV] 8 Sueane. Sueane Finger counselingOther [address] [place], [address] residential (current) [place], [address] [place] [address], [address], [place], therapyEncounter [place], [place] [address], [place], [id number], [place] [address]. [place], [address]. [place] immunodeficiency tel:+[phone] tel:[phone] tel:[phone] virus [phone] [facility] Encounter for Mar-0 White Referring [facility] [place] preprocedural Jessica. Provider: [facility] laboratory [address] examinationBody [place], [address], [address] mass index ([address]) [address], W [place] 32.0-32.9, [place], St, St, [place], adultEncntr screen [place], [place] [address], [place], [address]. [id number], sexl mode of [place]. [facility] risk tel:+[phone] bisexual behavior [phone] [facility] Encounter for oth Mika Referring [facility] [place] general cnsl and [place] Provider: Gil stone on 8 . [address] [place] [address] contraceptionman [place] Gugiuliaino F, [place], [address], [address] [place] virus [HIV] [place], [place] [address], St, [place], counselingEncntr [place] [address], [place], [address]. [id number], infections w sexl [place]. tel:+609 [place] mode of tel: [phone] tel:+[phone] transmissEncounter [phone] [phone] for screening for human immunodeficiency virus Family History Family Member Diagnosis Age At Onset No information Immunizations Vaccine Date Status Comments No information Payers Payer name Insurance type Covered democrat ID Authorization(s) [facility] [id number] Social History Type Description Quantity Date Captured [...] No information Medical Equipment Description Device [place] Device Identifier Effective Dates (start - stop ) Status No information Mental Status Date Cognitive Assessment No information Health Concerns Observation Date No information Concern Status Date No information
[2019-03-22 08:16] VITALS: BP 140/93
--- NOTE | 2019-03-22 08:41 | UC ---
Throat Pain/Nasal Servando HPI - HPI Summary HPI Summary: This patient is a 33-year-old male who presents to the urgent care with a chief complaint of having sore throat. Patient reports that he is having the symptoms since last Friday. He has nasal congestion and dry cough. He denies any fever, denies chills or body aches. He has no other complaints. - History of Current Complaint Chief Complaint: UCGeneralIllness Stated Complaint: SORE THROAT Time Seen by Provider: 03/22/19 08:23 Hx Obtained From: Patient Onset/Duration: Gradual Onset Severity: Mild Pain Intensity: 4 - Allergies/Home Medications Allergies/Adverse Reactions: Allergies Allergy/AdvReac Type Severity Reaction Status Date / Time shellfish derived Allergy Hives Verified 03/22/19 08:16 PMH/Surg Hx/FS Hx/Imm Hx Previously Healthy: Yes GI/ History: Gastroesophageal Reflux - Surgical History Surgical History: Yes Surgery Procedure, Year, and Place: CHOLECYSTECTOMY- 2004 - Family History Known Family History: Positive: Hypertension - Social History Alcohol Use: Occasionally Substance Use Type: Marijuana Smoking Status (MU): Never Smoked Tobacco - Immunization History Most Recent Influenza Vaccination: never Most Recent Tetanus Shot: up to date Review of Systems All Other Systems Reviewed And Are Negative: Yes Constitutional: Positive: Negative Skin: Positive: Negative Eyes: Positive: Negative ENT: Positive: Sore Throat Respiratory: Positive: Negative Cardiovascular: Positive: Negative Gastrointestinal: Positive: Negative Genitourinary: Positive: Negative Motor: Positive: Negative Neurovascular: Positive: Negative Musculoskeletal: Positive: Negative Neurological: Positive: Negative Psychological: Positive: Negative Is Patient Immunocompromised?: No Physical Exam - Summary Physical Exam Summary: Vital signs: Reviewed Gen.: Patient is a well developed and nourished male in no acute distress. Patient is sitting comfortably on the stretcher. Head: Normacephalic and atraumatic Eyes: PERRLA, EOMI x2. Ears: Right ear canal and TM WNL Left ear canal and TM WNL Nose Nose with dry mucosa and clear discharge. No sinus tenderness and mouth: Positive pharyngeal erythema with no exudate. Neck: Supple, no-bilateral submandibular and anterior cervical lymphadenopathy. No JVD Lungs: CTA B/L CVS: S1 & S2 present. No murmurs appreciated. ABDOMEN: Soft NT w/ positive BS. EXT: FROM x 4 NEURO: A+O X 3. Triage Information Reviewed: Yes Appearance: Well-Appearing Vital Signs: Initial Vital Signs Temp 97 F 03/22/19 08:12 Pulse 84 03/22/19 08:12 Resp 16 03/22/19 08:12 BP 140/93 03/22/19 08:12 Pulse Ox 100 03/22/19 08:12 Vital Signs Reviewed: Yes Throat Pain/Nasal Course/Dx - Course Course Of Treatment: Rapid strep test is negative. Therefore contacted the patient's symptoms are viral. Patient was recommended to take ibuprofen or Tylenol for the pain. He understands and agrees. - Differential Dx/Diagnosis Provider Diagnosis: Pharyngitis Discharge ED - Sign-Out/Discharge Documenting (check all that apply): Patient Departure All imaging exams completed and their final reports reviewed: No Studies - Discharge Plan Condition: Stable Disposition: HOME Patient Education Materials: Pharyngitis (ED) Referrals: Glenn Kevin MD [Primary Care Provider] - Additional Instructions: Increase water intake Take ibuprofen and Tylenol for pain Follow with the primary care physician in the next 2 days. Return to the urgent care if he develops any fevers, chills, bodyaches, worsening symptoms. - Billing Disposition and Condition Condition: STABLE Disposition: Home
== END 2019-03-22 08:45 | disposition home or self-care (01) ==
LOC: UCEAST 08:08
DX: J02.9 Acute pharyngitis, unspecified (principal); R09.81 Nasal congestion; Z91.013 Allergy to seafood
CPT/HCPCS: 87651; 99211; G0463